=== PATIENT | female | born 1995 | race Caucasian/White ===

== ENCOUNTER 2018-08-30 21:14 | Emergency (ER) | payer OTHER ==
--- NOTE | 2018-08-30 21:28 | ER Document Report ---
ED Medical Screen (RME) - General Chief Complaint: Passed Out Prior to Arrival Stated Complaint: SYNCOPE Time Seen by Provider: 08/30/18 21:24 Mode of Arrival: Wheelchair Information source: Patient, Relative Notes: Patient was standing playing with her child and had a syncopal episode. Patient fell back hitting her head on the wall and then had shaking to the upper torso and extremities for just a few seconds. Patient without any previous history of any seizure activity. Patient altered from her normal baseline per spouse. Spouse did witness the episode. Patient complains of headache and nausea. I have greeted and performed a rapid initial assessment of this patient. A comprehensive ED assessment and evaluation of the patient, analysis of test results and completion of the medical decision making process will be conducted by additional ED providers. TRAVEL OUTSIDE OF THE [place] IN LAST 30 DAYS: No Physical Exam - Vital signs Vitals: Temp Pulse Resp BP Pulse Ox 98.9 F 101 H 16 129/90 H 98 08/30/18 21:23 08/30/18 21:23 08/30/18 21:23 08/30/18 21:23 08/30/18 21:23 - Neurological [place] Coma Scale Eye Opening: Spontaneous Rick Coma Scale Verbal: Confused [place] Coma Scale Motor: Obeys Commands Rick Coma Scale Total: 14 Course - Re-evaluation Re-evalutation: 08/30/18 21:27 coil shaper advised, patient straight to CT from triage - Vital Signs Vital signs: Temp Pulse Resp BP Pulse Ox 98.9 F 101 H 16 129/90 H 98 08/30/18 21:23 08/30/18 21:23 08/30/18 21:23 08/30/18 21:23 08/30/18 21:23
--- NOTE | 2018-08-30 22:08 | RADIOLOGY REPORT (SQ) ---
EXAM DESCRIPTION: CT HEAD WITHOUT IV CONTRAST, CT CERVICAL SPINE WITHOUT IV CONTRAST COMPLETED DATE/TME: 08/30/2018 21:25 (accession [id number]), 08/30/2018 21:26 (accession [id number]) CLINICAL HISTORY: 23 years, Female, AMS, syncope COMPARISON: None. TECHNIQUE: CT brain and cervical spine without contrast. This exam was performed according to our departmental dose optimization program which includes use of automated exposure control, adjustment of the mA and/or kV according to patient size and/or use of iterative reconstruction technique. Images stored on PACS. All CT scanners at this facility use dose modulation, iterative reconstruction, and/or weight based dosing when appropriate to reduce radiation dose to as low as reasonably achievable (ALARA). [facility]: Dose Right [facility]: CareDose [facility]: Dose Right [facility]: Teradose 4D [facility]: [place] LIMITATIONS: None. FINDINGS: Brain: The ventricles, sulci, and cisterns are symmetric and unremarkable. The nolasco-white matter differentiation is preserved. There is no mass effect, midline shift, intra- or extra-axial fluid collection/acute hemorrhage. The osseous structures are unremarkable. The paranasal sinuses and mastoid air cells are clear. IMPRESSION: 1. No acute intracranial abnormalities. Cervical spine: There is normal alignment of the cervical spine without fracture or subluxation. The facets are normal in alignment bilaterally. The posterior elements including the spinous processes are intact. Straightening of the cervical spine which may be secondary to positioning for the examination. Morphology and attenuation of the vertebral bodies and intervertebral disk spaces is within normal limits. The pre-and paravertebral soft tissues are within normal limits. IMPRESSION: 1. Straightening of the cervical spine which may be secondary to positioning for the examination versus spasm. 2. No fracture or acute subluxation. TECHNICAL DOCUMENTATION: Quality ID # 436: Final reports with documentation of one or more dose reduction techniques (e.g., Automated exposure control, adjustment of the mA and/or kV according to patient size, use of iterative reconstruction technique) copyright 2011 [employer]- All Rights Reserved
--- NOTE | 2018-08-30 22:08 | RADIOLOGY REPORT (SQ) ---
EXAM DESCRIPTION: CT HEAD WITHOUT IV CONTRAST, CT CERVICAL SPINE WITHOUT IV CONTRAST COMPLETED DATE/TME: 08/30/2018 21:25 (accession [id number]), 08/30/2018 21:26 (accession [id number]) CLINICAL HISTORY: 23 years, Female, AMS, syncope COMPARISON: None. TECHNIQUE: CT brain and cervical spine without contrast. This exam was performed according to our departmental dose optimization program which includes use of automated exposure control, adjustment of the mA and/or kV according to patient size and/or use of iterative reconstruction technique. Images stored on PACS. All CT scanners at this facility use dose modulation, iterative reconstruction, and/or weight based dosing when appropriate to reduce radiation dose to as low as reasonably achievable (ALARA). [facility]: Dose Right [facility]: CareDose [facility]: Dose Right [facility]: Teradose 4D [facility]: Endorse[employer] LIMITATIONS: None. FINDINGS: Brain: The ventricles, sulci, and cisterns are symmetric and unremarkable. The nolasco-white matter differentiation is preserved. There is no mass effect, midline shift, intra- or extra-axial fluid collection/acute hemorrhage. The osseous structures are unremarkable. The paranasal sinuses and mastoid air cells are clear. IMPRESSION: 1. No acute intracranial abnormalities. Cervical spine: There is normal alignment of the cervical spine without fracture or subluxation. The facets are normal in alignment bilaterally. The posterior elements including the spinous processes are intact. Straightening of the cervical spine which may be secondary to positioning for the examination. Morphology and attenuation of the vertebral bodies and intervertebral disk spaces is within normal limits. The pre-and paravertebral soft tissues are within normal limits. IMPRESSION: 1. Straightening of the cervical spine which may be secondary to positioning for the examination versus spasm. 2. No fracture or acute subluxation. TECHNICAL DOCUMENTATION: Quality ID # 436: Final reports with documentation of one or more dose reduction techniques (e.g., Automated exposure control, adjustment of the mA and/or kV according to patient size, use of iterative reconstruction technique) copyright 2011 [employer]- All Rights Reserved
--- NOTE | 2018-08-30 22:09 | RADIOLOGY REPORT (SQ) ---
EXAM DESCRIPTION: XR CHEST 1 VIEW COMPLETED DATE/TME: 08/30/2018 21:25 CLINICAL HISTORY: 23 years, Female, AMS, syncope COMPARISON: None. NUMBER OF VIEWS: 1 TECHNIQUE: Single view, AP portable chest was obtained. LIMITATIONS: None. FINDINGS: Unremarkable cardiac and mediastinal silhouette. Heart size is normal. Lungs are clear without focal opacity, pneumothorax or pleural effusions. The visualized bones are within normal limits. IMPRESSION: No acute cardiopulmonary abnormalities. copyright 2010 [employer]- All Rights Reserved
--- NOTE | 2018-08-30 22:31 | ER Document Report ---
ED General - General Chief Complaint: Passed Out Prior to Arrival Stated Complaint: SYNCOPE Time Seen by Provider: 08/30/18 21:24 Mode of Arrival: Wheelchair TRAVEL OUTSIDE OF THE [place] IN LAST 30 DAYS: No - HPI Notes: Patient is a 23-year-old female who presents to the emergency department for evaluation. She was playing with her 3-year-old son. She suddenly fell backwards, striking her head, and had "convulsions" for a few seconds. Patient's witnessed this. He states that he was able to lift her off the ground and stand her back up. At that point she seemed very sleepy and confused. He kept her awake, but brings her to the ED for further evaluation. The patient complains of a mild headache and nausea. She states her "tongue feels too big for her mouth." She also states her legs feel heavy. The patient has no history of seizure disorder or known seizures, but does admit to frequent concussions, no less than 9. - Related Data Home Medications: Zyrtec, Prozac Past Medical History - General Information source: Patient, Relative - Social History Smoking Status: Never Smoker Frequency of alcohol use: Rare Drug Abuse: None Family History: Malignancy - Breast cancer, ovarian cancer - Medical History Medical History: Other - Seasonal allergies Traumatic Medical History: Reports: Other - Multiple concussions in the past Review of Systems - Review of Systems Constitutional: See HPI EENT: No symptoms reported Cardiovascular: No symptoms reported Respiratory: No symptoms reported Gastrointestinal: See HPI Genitourinary: No symptoms reported Musculoskeletal: No symptoms reported Skin: No symptoms reported Neurological/Psychological: See HPI Physical Exam - Vital signs Vitals: Temp Pulse Resp BP Pulse Ox 98.9 F 101 H 16 129/90 H 98 08/30/18 21:23 08/30/18 21:23 08/30/18 21:23 08/30/18 21:23 08/30/18 21:23 - Notes Notes: This is a very pleasant 23-year-old female, who appears her stated age in no acute distress. Head is normocephalic. Pupils are equal round, reactive to light. No facial tenderness. Oral mucosa is moist. Mild edema noted to the left side of the tongue without laceration. Uvula is midline. Heart is regular rate and rhythm, lungs are clear to station bilaterally. Chest wall is nontender. Abdomen soft, nontender, normoactive bowel sounds throughout. Extremities without cyanosis, clubbing, edema. Peripheral pulses are equal. Patient is awake, alert, oriented x3, although slow to answer questions. Cranial nerves II - XII are grossly intact without focal neurological deficits. Strength is plus 5 out of 5 bilateral upper and lower extremities. Sensation is intact. Reflexes symmetrical. Intact [id number], rapid alternating movements, [id number]. Course - Re-evaluation Re-evalutation: 08/30/18 22:30 She presented to the emergency department for evaluation. She was initially seen through triage and orders were placed. CT scan of the head and neck were unremarkable. This is as per radiologist interpretation. Seizure precautions were initiated, laboratory investigations ordered. We will continue to follow. 08/31/18 01:50 Patient remained stable. It is difficult to determine at this point whether or not her symptoms are secondary to her head injury, or if she was truly postictal. Given her tongue swelling and the reported convulsions, I do have a strong suspicion for seizure. Laboratory investigations unremarkable. Will refer patient on to primary care. She is also to seek out referral to neurology. She is told unequivocally no driving until cleared. She voiced understanding to this. She is to return to the emergency department with worsening or new concerning symptoms of any sort. - Vital Signs Vital signs: Temp Pulse Resp BP Pulse Ox 98.9 F 101 H 33 H 105/74 99 08/30/18 21:23 08/30/18 21:23 08/31/18 01:00 08/31/18 00:00 08/31/18 00:01 - Laboratory Result Diagrams: 08/30/18 22:28 08/30/18 22:28 Laboratory results interpreted by me: 08/30/18 08/30/18 08/31/18 22:28 22:28 00:23 WBC 12.3 H Absolute Neutrophils 8.3 H Total Bilirubin 1.6 H Urine Urobilinogen 2.0 H - Diagnostic Test Radiology reviewed: Reports reviewed Radiology results interpreted by me: 08/31/18 01:51 Chest X-Ray 08/30/18 21:25 IMPRESSION: No acute cardiopulmonary abnormalities. copyright 2010 [employer]- All Rights Reserved Head CT 08/30/18 21:25 IMPRESSION: 1. No acute intracranial abnormalities. Cervical spine: There is normal alignment of the cervical spine without fracture or subluxation. The facets are normal in alignment bilaterally. The posterior elements including the spinous processes are intact. Straightening of the cervical spine which may be secondary to positioning for the examination. Morphology and attenuation of the vertebral bodies and intervertebral disk spaces is within normal limits. The pre-and paravertebral soft tissues are within normal limits. IMPRESSION: 1. Straightening of the cervical spine which may be secondary to positioning for the examination versus spasm. 2. No fracture or acute subluxation. TECHNICAL DOCUMENTATION: Quality ID # 436: Final reports with documentation of one or more dose reduction techniques (e.g., Automated exposure control, adjustment of the mA and/or kV according to patient size, use of iterative reconstruction technique) copyright 2010 [employer]- All Rights Reserved Cervical Spine CT 08/30/18 21:26 IMPRESSION: 1. No acute intracranial abnormalities. Cervical spine: There is normal alignment of the cervical spine without fracture or subluxation. The facets are normal in alignment bilaterally. The posterior elements including the spinous processes are intact. Straightening of the cervical spine which may be secondary to positioning for the examination. Morphology and attenuation of the vertebral bodies and intervertebral disk spaces is within normal limits. The pre-and paravertebral soft tissues are within normal limits. IMPRESSION: 1. Straightening of the cervical spine which may be secondary to positioning for the examination versus spasm. 2. No fracture or acute subluxation. TECHNICAL DOCUMENTATION: Quality ID # 436: Final reports with documentation of one or more dose reduction techniques (e.g., Automated exposure control, adjustment of the mA and/or kV according to patient size, use of iterative reconstruction technique) copyright 2010 [employer]- All Rights Reserved Discharge - Discharge Clinical Impression: Seizure, Syncope and collapse Head injury Qualifiers: Encounter type: initial encounter Qualified Code(s): S09.90XA - Unspecified injury of head, initial encounter Condition: Stable Disposition: HOME, SELF-CARE Instructions: Head Injury Precautions ([facility]), New Seizure ([facility]) Additional Instructions: At this point it is unclear as to whether or not your symptoms were as a result of the seizure, or simply of your head injury. Either way, absolutely NO D RIVING until cleared by primary care/neurology. Rest. If you have a repeat of this incident, you develop new or concerning symptoms of any sort, return immediately to the emergency department for reevaluation.
[2018-08-30 22:37] LABS: ABSOLUTE BASOPHILS # (AUTO) 0.1 10^3/uL (0.0-0.2); ABSOLUTE EOSINOPHILS # (AUTO) 0.2 10^3/uL (0.0-0.6); ABSOLUTE LYMPHOCYTES (AUTO) 2.7 10^3/uL (0.5-4.7); ABSOLUTE NEUT (AUTO) 8.3 10^3/uL (1.7-8.2); BASOPHILS % (AUTO) 0.5 % (0-2); EOSINOPHILS % (AUTO) 1.3 % (0-6); HEMATOCRIT 43.3 % (36.0-47.0); HEMOGLOBIN 14.6 g/dL (12.0-15.5); LYMPHOCYTES % (AUTO) 21.9 % (13-45); MEAN CORPUSCULAR HEMOGLOBIN 30.6 pg (27.0-33.4); MEAN CORPUSCULAR HGB CONC 33.6 g/dL (32.0-36.0); MEAN CORPUSCULAR VOLUME 91 fl (80-97); MONOCYTES % (AUTO) 8.3 % (3-13); PLATELET COUNT 284 10^3/uL (150-450); RED BLOOD COUNT 4.77 10^6/uL (3.72-5.28); RED CELL DISTRIBUTION WIDTH 12.9 % (11.5-14.0); TOTAL CELLS COUNTED % (AUTO) 100 %; WHITE BLOOD COUNT 12.3 10^3/uL (4.0-10.5)
[2018-08-30 22:58] LABS: ALANINE AMINOTRANSFERASE 22 U/L (9-52); ALBUMIN 4.3 g/dL (3.5-5.0); ALKALINE PHOSPHATASE 49 U/L (38-126); ANION GAP 10 (5-19); ASPARTATE AMINO TRANSFERASE 18 U/L (14-36); BILIRUBIN,DIRECT 0.2 mg/dL (0.0-0.4); BILIRUBIN,TOTAL 1.6 mg/dL (0.2-1.3); BLOOD UREA NITROGEN 9 mg/dL (7-20); CALCIUM 9.3 mg/dL (8.4-10.2); CARBON DIOXIDE 22 mmol/L (22-30); CHLORIDE 106 mmol/L (98-107); CREATINE KINASE 43 U/L (30-135); GLUCOSE 96 mg/dL (75-110); POTASSIUM 3.8 mmol/L (3.6-5.0)
[2018-08-30 22:59] LABS: ALCOHOL < 10 mg/dL (NONE DETECTED)
[2018-08-31 00:37] LABS: INTERNATIONAL RATION (INR) 0.95; PROTHROMBIN TIME 12.7 SEC (11.4-15.4)
[2018-08-31 00:38] LABS: PARTIAL THROMBOPLASTIN TIME 32.2 SEC (23.5-35.8)
[2018-08-31 00:53] LABS: APPEARANCE,URINE CLEAR; BILIRUBIN,URINE NEGATIVE (NEGATIVE); COLOR,URINE YELLOW; GLUCOSE, URINE NEGATIVE (NEGATIVE); KETONES,URINE NEGATIVE (NEGATIVE); LEUKOCYTE ESTERASE,URINE NEGATIVE (NEGATIVE); NITRITE,URINE NEGATIVE (NEGATIVE); PROTEIN,URINE NEGATIVE (NEGATIVE)
[2018-08-31 01:34] LABS: URINE AMPHETAMINES SCREEN NEGATIVE; URINE BARBITURATES SCREEN NEGATIVE; URINE BENZODIAZEPINES SCREEN NEGATIVE; URINE COCAINE SCREEN NEGATIVE; URINE MARIJUANA (THC) SCREEN NEGATIVE; URINE METHADONE SCREEN NEGATIVE; URINE PHENCYCLIDINE SCREEN NEGATIVE
[2018-08-31 01:41] VITALS: BP 105/74
--- NOTE | 2018-08-31 10:17 | EKG REPORT ---
SEVERITY:- NORMAL ECG - SINUS RHYTHM : Confirmed by: Sanford Hernández MD 31-Aug-2018 10:17:12
== END 2018-08-31 02:41 | disposition home or self-care (01) ==
LOC: EDBD → ER 21:14
DX: S09.90XA Unspecified injury of head, initial encounter (principal); W19.XXXA Unspecified fall, initial encounter; R51 Headache; R11.0 Nausea; R60.0 Localized edema; R56.9 Unspecified convulsions; R40.2142 Coma scale, eyes open, spontaneous, at arrival to emergency department; R40.2242 Coma scale, best verbal response, confused conversation, at arrival to emergency department; R40.2362 Coma scale, best motor response, obeys commands, at arrival to emergency department; J30.2 Other seasonal allergic rhinitis; Z79.899 Other long term (current) drug therapy; Z87.820 Personal history of traumatic brain injury
CPT/HCPCS: 36415; 70450; 71045; 72125; 80053; 80307; 81001; 82550; 84703; 85025; 85610; 85730; 93005; 93010; 99284

== ENCOUNTER 2018-09-05 20:23 | Emergency (ER) | payer OTHER ==
[2018-09-05 20:34] VITALS: BP 114/75
== END 2018-09-05 21:25 | disposition left against medical advice (07) ==
LOC: ER 20:23
DX: Z53.21 Procedure and treatment not carried out due to patient leaving prior to being seen by health care provider (principal)